=== PATIENT | male | born 1995 | race American Indian/Alaskan Native ===

== ENCOUNTER 2021-11-26 20:01 | Emergency (ER) | payer SELFPAY ==
[2021-11-26 20:42] VITALS: BP 122/64
[2021-11-26] MEDS ORDERED: IBUPROFEN 800 MG TAB PO ONE (21:18)
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
--- NOTE | 2021-11-26 21:49 | XRay Report ---
Left scapula 2 views INDICATION: Pain FINDINGS: Glenohumeral joint and AC joint appear normal and intact. No definite scapular fracture is seen. Small soft tissue hypodensity is seen adjacent to the humerus, nonspecific. Left shoulder 3 views INDICATION: No definite dislocation is seen. No displaced fracture. Signer Name: Mike Street MD Signed: 11/26/2021 9:44 PM Workstation Name: [id number]
== END 2021-11-26 22:12 | disposition home or self-care (01) ==
LOC: ED 20:01
DX: S49.92XA Unspecified injury of left shoulder and upper arm, initial encounter (principal); W19.XXXA Unspecified fall, initial encounter; Y93.89 Activity, other specified; Y92.89 Other specified places as the place of occurrence of the external cause; Y99.8 Other external cause status
CPT/HCPCS: 99284